=== PATIENT | male | born 1955 | race Caucasian/White ===

== ENCOUNTER 2018-05-14 08:38 | Day surgery (SDC) | payer BC, MEDICARE ==
[2018-05-13 15:45] VITALS: BMI 24.3
[~2018-05-14 08:38] MED LIST: Cyclopentolate 1% Opth Drop 2 ML BOT FS SCH; Fentanyl 100 MCG/2 ML VIAL ONE; Fluorouracil 100 MG, Enoxaparin Sodium 25 MG, EPINEPHrine 0.3 MG in Ophthalmic Irrigati... IVPB SCH; Midazolam HCl 2 mg/2 ml Vial ONE; Phenylephrine 2.5% Ophth Soln 5 ML BOT FS SCH
[2018-05-14] MEDS ORDERED: Phenylephrine 2.5% Ophth Soln 5 ML BOT ONE (09:11)
[2018-05-14] MEDS ORDERED: Cyclopentolate 1% Opth Drop 2 ML BOT ONE (09:11)
[2018-05-14] MEDS ORDERED: CEFAZOLIN 1 GM VIAL ONE (14:24)
[2018-05-14] MEDS ORDERED: PROPOFOL 200 MG/20 ML VIAL ONE (14:24)
[2018-05-14] MEDS ORDERED: Lidocaine 4% PF 5 ML AMP ONE (14:24)
[2018-05-14] MEDS ORDERED: Triamcinolone 40 MG/ML VIAL ONE (14:24)
[2018-05-14] MEDS ORDERED: Lidocaine 1% PF 5 ML VIAL ONE (14:24)
[2018-05-14] MEDS ORDERED: Maxitrol 0.1% Opth Oint 3.5 GM TUBE ONE (14:24)
[2018-05-14] MEDS ORDERED: Bupivacaine 0.75% 10 ML AMP ONE (14:24)
--- NOTE | 2018-05-14 17:06 | OP ---
DATE OF PROCEDURE: 05/14/2018 PREOPERATIVE DIAGNOSIS: Rhegmatogenous retinal detachment, right eye. POSTOPERATIVE DIAGNOSIS: Rhegmatogenous retinal detachment, right eye. PROCEDURE PERFORMED: Pars plana vitrectomy, retinal detachment repair, right eye. ANESTHESIA: Local with monitored anesthesia care. DESCRIPTION OF PROCEDURE: The patient was identified in the preoperative holding area. Appropriate informed consent for the planned surgical procedure on the right eye had been obtained. The patient was transported to the operative suite, where appropriate cardiopulmonary monitoring was established. Local anesthesia was obtained using retrobulbar modified Van Lint lid block using 50:50 mixture of 4% lidocaine and 0.75% bupivacaine. The patient was prepped and draped in usual sterile manner for ophthalmic surgery on the right eye. Lid speculum was placed in the right eye. A 25-gauge trocar was placed through conjunctiva and sclera superotemporally, inferotemporally, and supranasally infusion line was placed inferotemporally. Light pipe and vitreous cutter were inserted into the eye. Core vitrectomy was performed. Vitreous base was trimmed back carefully to 360 using wide-field viewing system. Posterior drained retinotomy was created inferior to the nerve. The tear was noted at the 8 o'clock position. All traction was removed from the horseshoe tear. Complete air-fluid exchange was performed 10 minutes being left for fluid to drain posteriorly. A 360 laser was placed using Endolaser delivery device. 15% propane gas was infused into the eye. Trocars were removed. Eye was noted to retain pressure well. Retrobulbar Kenalog and sequential Ancef were placed. Antibiotic ointment placed last patched until the patient was taken to the postop recovery unit in good condition, having suffered no immediate perioperative complications. The patient was instructed to keep the shield on, positioned left side down, Followup with Dr. Tipton. Job ID: [id number]
== END 2018-05-14 12:44 | disposition home or self-care (01) ==
LOC: SDC 08:38
PROVIDERS: ATTEND Ophthalmology Retina Specialist
PROC: 08T43ZZ Resection of Right Vitreous, Percutaneous Approach (ICD-10-PCS; principal; 2018-05-14)
DX: H33.011 Retinal detachment with single break, right eye (principal); Z79.899 Other long term (current) drug therapy
CPT/HCPCS: 67025; J0171; J0690; J1650; J2001; J2250; J2704; J3010; J3301; J3490; J9190

== ENCOUNTER 2023-02-17 13:20 | Outpatient (CLI) | payer MEDICARE | END 2023-02-17 13:21 | disposition home or self-care (01) | LOC: SCSRAD 13:20 | PROVIDERS: ATTEND Nurse Practitioner Family | DX: R06.2 Wheezing (principal) | CPT/HCPCS: 71046 ==

== ENCOUNTER 2023-11-12 12:49 | Outpatient (CLI) | payer MEDICARE ==
[~2023-11-12 12:49] MED LIST changes: -Cyclopentolate 1% Opth Drop 2 ML BOT FS SCH; -Fentanyl 100 MCG/2 ML VIAL ONE; -Fluorouracil 100 MG, Enoxaparin Sodium 25 MG, EPINEPHrine 0.3 MG in Ophthalmic Irrigati... IVPB SCH; +Iopamidol 370 76% 100 ML VIAL ONE; -Midazolam HCl 2 mg/2 ml Vial ONE; -Phenylephrine 2.5% Ophth Soln 5 ML BOT FS SCH
== END 2023-11-12 12:50 | disposition home or self-care (01) ==
LOC: BICCT 12:49
PROVIDERS: ATTEND Nurse Practitioner Family
DX: R14.0 Abdominal distension (gaseous) (principal); K76.0 Fatty (change of) liver, not elsewhere classified; N40.0 Benign prostatic hyperplasia without lower urinary tract symptoms; K43.9 Ventral hernia without obstruction or gangrene; J98.11 Atelectasis; K76.89 Other specified diseases of liver; M43.17 Spondylolisthesis, lumbosacral region; M47.814 Spondylosis without myelopathy or radiculopathy, thoracic region
CPT/HCPCS: 74178; 82565; Q9967